=== PATIENT | female | born 1955 | race Two or more races ===

== ENCOUNTER 2022-08-05 08:56 | Emergency (ER) | payer OTHER ==
[2022-08-05 09:07] VITALS: BP 122/76; PULSE 81; RESP 16; TEMP 98.2; BMI 25.9
[2022-08-05] MEDS ORDERED: ACETAMINOPHEN 500 MG TABLET (FP) PO ONE (09:28)
[2022-08-05] MEDS ORDERED: ACETAMINOPHEN 500 MG TABLET (FP) ONE (09:43)
== END 2022-08-05 12:18 | disposition home or self-care (01) ==
LOC: JER 08:56
DX: M25.561 Pain in right knee (principal)
CPT/HCPCS: 73560-TC-RT-FY; 93971-TC; 99284-25